=== PATIENT | female | born 1965 | race African-American/Black ===

== ENCOUNTER 2017-02-04 20:22 | Emergency (ER) | payer MEDICAID ==
[~2017-02-04] VITALS: Ht 172.7 cm; Wt 108.9 kg
[2017-02-04] MEDS ORDERED: OMEPRAZOLE10 M1 ORAL (20:33)
[2017-02-04] MEDS ORDERED: CARDIZEM60 MG ORAL (20:33)
[2017-02-04] MEDS ORDERED: METOPROLOL SUCC50 MG ORAL (20:33)
[2017-02-04] MEDS ORDERED: CICLOPIROX15 GM TP (20:42)
[2017-02-04 20:45] VITALS: BP 123/70
[2017-02-04 20:48] VITALS: BP 123/70
--- NOTE | 2017-02-06 13:37 | Emergency Room Report ---
History of Present Illness General Chief Complaint: Pain Source: Patient Present Illness HPI Patient's 51-year-old female presented after increased pain to her finger. Patient had partially axially remove her nail. This had become somewhat painful. Patient denied any fever. She had had not noticed any bleeding. Patient had not been having any fever. She had some artificial nail use prior. She denied any numbness or weakness to the finger. She denied any swelling.Injury occurred several days prior to arrival Allergies: Uncoded Allergies: PENICILLIN (Allergy, Intermediate, 02/04/17) Patient History Past Medical History: see triage record Last Menstrual Period: 01/03/17 Now: No : 2 Para: 3 Reviewed Nursing Documentation: PMH: Agreed, PSxH: Agreed Nursing Documentation-PMH Hx Cardiac Problems: Yes - Loop recorder for arrythmia, Ablation 2014 Hx Hypertension: Yes Hx Asthma: Yes Review of Systems All Other Systems: negative except mentioned in HPI Physical Exam Vital Signs Date Time Temp Pulse Resp B/P Pulse Ox O2 Delivery O2 Flow Rate FiO2 02/04/17 20:27 98.1 60 14 123/70 96 Room Air General Appearance: well appearing, no apparent distress, alert, GCS 15 Head: normocephalic, atraumatic ENT: hearing grossly normal, normal voice Neck: full range of motion, supple Respiratory: no respiratory distress, speaking full sentences Cardiovascular #1: normal inspection, normal peripheral pulses, regular rate, rhythm Gastrointestinal: normal inspection Musculoskeletal: no calf tenderness, other - partial avulsion to nail with nailbed and part of matrix intact, slight yellow discoloration Neurologic: alert, oriented x3, normal gait Psychiatric: mood/affect normal Skin: no rash Medical Decision Making Diagnostic Impression: Primary Impression: Avulsion of nail ER Course Patient presented for nail pain. The differential diagnosis included was not limited to fracture, foreign body, fungal infection among others. Patient's benign exam and does not appear to require any further imaging or laboratory testing at this time. The patient appears to have a partial nail avulsion which does not appear to require any treatment at this time. Patient given prescription for antifungal medications. The patient is advised to follow up with primary care doctor in 1-2 days. Patient is advised to return if any worsening condition or if any changes in status that are concerning. Last Vital Signs Date Time Temp Pulse Resp B/P Pulse Ox O2 Delivery O2 Flow Rate FiO2 02/04/17 20:48 98.1 14 123/70 96 Room Air 02/04/17 20:27 60 Status: improved Disposition: HOME, SELF-CARE Condition: Stable Scripts Ciclopirox Olamine* (LOPROX*) 15 Gm Cream..g. 15 GM TP DAILY, #15 GM Prov: Yazan Rose 02/04/17 Referrals: [facility]ERR[facility] (PCP) Patient Instructions: Nail Avulsion Yazan Rose Feb 06, 2017 13:37
== END 2017-02-04 20:48 | disposition home or self-care (01) ==
LOC: EMR 20:45
DX: S61.101A Unspecified open wound of right thumb with damage to nail, initial encounter (principal); X58.XXXA Exposure to other specified factors, initial encounter; Y93.9 Activity, unspecified; Y92.9 Unspecified place or not applicable; Z88.0 Allergy status to penicillin; I10 Essential (primary) hypertension
CPT/HCPCS: 99283